=== PATIENT | male | born 1945 | race Caucasian/White ===

== ENCOUNTER 2018-04-11 14:23 | Outpatient (REF) | payer MEDICARE, BC, SELFPAY ==
[2018-04-11 21:21] LABS: Abs Immature Grans 0.01 k/cumm (0.0-0.09); Absolute Basophil Count 0.06 k/cumm (0.0-0.2); Absolute Eosinophil Count 0.27 k/cumm (0.0-0.7); Absolute Lymphocyte Count 2.19 k/cumm (1.2-3.4); Absolute Neutrophil Count 4.94 k/cumm (1.2-6.7); Basophils % 0.7; Eosinophils % 3.3; HCT 36.2 % (40.0-50.0); HGB 10.7 g/dL (13.5-17.5); Immature Grans % 0.1; Lymphocytes % 26.5; Mean Corp. HGB Concentration 29.6 g/dL (32.0-36.0); Mean Corpuscular Hemoglobin 25.2 pg (27.0-33.0); Mean Corpuscular Volume 85.2 fL (80-95); Mean Platelet Volume 11.5 fL (8.0-11.0); Monocytes % 9.7; Neutrophils % 59.7; Platelet Count 295 x1000/uL (130-400); RBC 4.25 m/cumm (4.50-6.00); White Blood Cell Count 8.27 k/cumm (4.4-10.8)
[2018-04-11 21:55] LABS: ALT 29 U/L (12-78); AST 16 U/L (15-37); Albumin 3.9 g/dL (3.4-5.0); Alkaline Phosphatase 63 U/L (46-116); BUN 20 mg/dL (7-18); Bilirubin, Total 0.2 mg/dL (0.2-1.0); CREATININE 1.04 mg/dL (0.70-1.30); Calcium 8.7 mg/dL (8.5-10.1); Chloride 105 mmol/L (98-107); Cholesterol 230 mg/dL (50-200); Ferritin 11 ng/mL (8-388); Glucose 92 mg/dL (70-100); HDL Cholesterol 39 mg/dL (40-60); LDL CHOLESTEROL 160 mg/dL (<100); Potassium 4.5 mmol/L (3.5-5.1); Sodium 139 mmol/L (136-145); Total Protein 7.2 g/dL (6.4-8.2); Triglyceride 265 mg/dL (30-150)
== END 2018-04-11 14:24 ==
LOC: NCHCN 14:23
PROVIDERS: Visit Provider Family Medicine
DX: D64.9 Anemia, unspecified (principal); E78.5 Hyperlipidemia, unspecified
CPT/HCPCS: 80053; 80061; 83721; 82728; 85025; 85045

== ENCOUNTER 2019-01-22 11:41 | Outpatient (REF) | payer MEDICARE, BC, SELFPAY ==
[2019-01-22 22:16] LABS: HGB 14.4 g/dL (13.5-17.5); Mean Corp. HGB Concentration 32.7 g/dL (32.0-36.0); Mean Corpuscular Volume 100.7 fL (80-95); Mean Platelet Volume 11.5 fL (8.0-11.0); Platelet Count 228 x1000/uL (130-400); RBC 4.37 m/cumm (4.50-6.00); RBC Distribution Width 11.9 % (11.8-14.1); White Blood Cell Count 6.07 k/cumm (4.4-10.8)
[2019-01-22 22:48] LABS: ALT 26 U/L (12-78); AST 23 U/L (15-37); Albumin 3.8 g/dL (3.4-5.0); Alkaline Phosphatase 63 U/L (46-116); Anion Gap 9.4 mmol/L (3-11); BUN 17 mg/dL (7-18); Bilirubin, Total 0.6 mg/dL (0.2-1.0); CO2 25.6 mmol/L (21.0-32.0); CREATININE 0.89 mg/dL (0.70-1.30); Calculated LDL 94; Chloride 106 mmol/L (98-107); Cholesterol 152 mg/dL (50-200); Ferritin 9 ng/mL (8-388); Glucose 89 mg/dL (70-100); HDL Cholesterol 45 mg/dL (40-60); Potassium 4.5 mmol/L (3.5-5.1); Sodium 141 mmol/L (136-145); Total Protein 6.8 g/dL (6.4-8.2); Triglyceride 69 mg/dL (30-150)
[2019-01-22 22:54] LABS: Calcium 8.8 mg/dL (8.5-10.1)
[2019-01-23 20:38] LABS: Vitamin B12 743 pg/mL (193-986)
[2019-01-27 09:37] LABS: Folate 22.8 ng/ml
== END 2019-01-22 12:01 ==
LOC: NCHCN 11:41
PROVIDERS: Visit Provider Family Medicine
DX: D64.9 Anemia, unspecified (principal); E78.5 Hyperlipidemia, unspecified; D75.89 Other specified diseases of blood and blood-forming organs; I10 Essential (primary) hypertension; E66.9 Obesity, unspecified
CPT/HCPCS: 80053; 80061; 83721; 85027; 82607; 82728; 82746

== ENCOUNTER 2019-06-02 09:50 | Outpatient (REF) | payer MEDICARE, BC, SELFPAY ==
[2019-06-02 22:12] LABS: HCT 47.1 % (40.0-50.0); HGB 15.5 g/dL (13.5-17.5); Mean Corp. HGB Concentration 32.9 g/dL (32.0-36.0); Mean Corpuscular Hemoglobin 32.9 pg (27.0-33.0); Mean Platelet Volume 11.7 fL (8.0-11.0); Platelet Count 218 x1000/uL (130-400); RBC 4.71 m/cumm (4.50-6.00); RBC Distribution Width 13.1 % (11.8-14.1); White Blood Cell Count 6.09 k/cumm (4.4-10.8)
[2019-06-02 22:37] LABS: Ferritin 23 ng/mL (8-388)
== END 2019-06-02 10:10 ==
LOC: NCHCN 09:50
PROVIDERS: Visit Provider Family Medicine
DX: D64.9 Anemia, unspecified (principal)
CPT/HCPCS: 85027; 82728

== ENCOUNTER 2020-05-25 09:48 | Outpatient (REF) | payer MEDICARE, BC, SELFPAY ==
[2020-05-25 21:13] LABS: Abs Immature Grans 0.01 10^3/uL (0.0-0.06); Absolute Basophil Count 0.06 10^3/uL (0.0-0.2); Absolute Eosinophil Count 0.15 10^3/uL (0.0-0.7); Absolute Lymphocyte Count 1.59 10^3/uL (1.2-3.4); Absolute Monocyte Count 0.53 10^3/uL (0.1-0.8); Absolute Neutrophil Count 3.81 10^3/uL (1.2-6.7); Eosinophils % 2.4; HCT 46.1 % (40.0-50.0); HGB 15.2 g/dL (13.5-17.5); Immature Grans % 0.2; Lymphocytes % 25.9; MCH 32.7 pg (27.0-33.0); MCV 99.1 fL (80-95); MPV 11.5 fL (8.0-11.0); Monocytes % 8.6; Neutrophils % 61.9; Nucleated RBC 0 %; Platelet Count 227 10^3/uL (130-400); RBC 4.65 10^6/uL (4.36-5.78); RDW 12.1 % (11.8-14.1); RDW-SD 44.2 fL; WBC 6.15 10^3/uL (4.4-10.8)
[2020-05-25 21:39] LABS: ALT 28 U/L (16-63); AST 17 U/L (15-37); Albumin 3.9 g/dL (3.4-5.0); Alkaline Phosphatase 58 U/L (46-116); Anion Gap 7.7 mmol/L (3-11); BUN 18 mg/dL (7-18); Bilirubin, Total 0.8 mg/dL (0.2-1.0); CO2 27.3 mmol/L (21.0-32.0); Calculated LDL 98 mg/dL (<100); Chloride 107 mmol/L (98-107); Cholesterol 160 mg/dL (<200); Ferritin 18 ng/mL (26-388); Glucose 91 mg/dL (74-106); HDL Cholesterol 50 mg/dL (40-60); Potassium 4.6 mmol/L (3.5-5.1); Sodium 142 mmol/L (136-145); Total Protein 6.8 g/dL (6.4-8.2); Triglyceride 63 mg/dL (<150)
== END 2020-05-25 10:08 ==
LOC: NCHCN 09:48
PROVIDERS: Visit Provider Family Medicine
DX: D64.9 Anemia, unspecified (principal); E78.5 Hyperlipidemia, unspecified
CPT/HCPCS: 80053; 80061; 82728; 85025

== ENCOUNTER 2021-05-12 08:23 | Outpatient (REF) | payer MEDICARE, BC, SELFPAY ==
[2021-05-12 21:12] LABS: Abs Immature Grans 0.01 10^3/uL (0.0-0.06); Absolute Basophil Count 0.07 10^3/uL (0.0-0.2); Absolute Eosinophil Count 0.21 10^3/uL (0.0-0.7); Absolute Lymphocyte Count 1.74 10^3/uL (1.2-3.4); Absolute Monocyte Count 0.52 10^3/uL (0.1-0.8); Absolute Neutrophil Count 3.54 10^3/uL (1.2-6.7); Basophils % 1.1; Eosinophils % 3.4; HCT 46.7 % (40.0-50.0); HGB 14.9 g/dL (13.5-17.5); Immature Grans % 0.2; Lymphocytes % 28.6; MCH 30.5 pg (27.0-33.0); MCHC 31.9 % (32.0-36.0); MCV 95.7 fL (80-95); Monocytes % 8.5; Neutrophils % 58.2; Nucleated RBC 0 %; Platelet Count 206 10^3/uL (130-400); RBC 4.88 10^6/uL (4.36-5.78); RDW 13.3 % (11.8-14.1); RDW-SD 47.3 fL; WBC 6.09 10^3/uL (4.4-10.8)
[2021-05-12 21:27] LABS: ALT 26 U/L (16-63); AST 16 U/L (15-37); Albumin 3.8 g/dL (3.4-5.0); Alkaline Phosphatase 61 U/L (46-116); Anion Gap 8.6 mmol/L (3-11); BUN 21 mg/dL (7-18); Bilirubin, Total 0.6 mg/dL (0.2-1.0); CO2 27.4 mmol/L (21.0-32.0); Calculated LDL 101 mg/dL (<100); Chloride 107 mmol/L (98-107); Cholesterol 161 mg/dL (<200); Ferritin 25 ng/mL (26-388); Glucose 89 mg/dL (74-106); HDL Cholesterol 45 mg/dL (40-60); Potassium 4.5 mmol/L (3.5-5.1); Sodium 143 mmol/L (136-145); Total Protein 6.7 g/dL (6.4-8.2); Triglyceride 75 mg/dL (<150)
== END 2021-05-12 08:24 | disposition home or self-care (01) ==
LOC: NCHCN 08:23
PROVIDERS: Visit Provider Family Medicine
DX: I10 Essential (primary) hypertension (principal); D64.9 Anemia, unspecified; Z00.00 Encounter for general adult medical examination without abnormal findings
CPT/HCPCS: 80053; 80061; 82728; 85025

== ENCOUNTER 2021-12-15 19:59 | Outpatient (REF) | payer MEDICARE, BC, SELFPAY ==
[2021-12-15 21:31] LABS: HCT 34.1 % (40.0-50.0); HGB 9.8 g/dL (13.5-17.5); MCH 24.7 pg (27.0-33.0); MCHC 28.7 % (32.0-36.0); MCV 86 fL (80-95); MPV 11.3 fL (8.0-11.0); Platelet Count 328 10^3/uL (130-400); RBC 3.96 10^6/uL (4.36-5.78); RDW 14.2 % (11.8-14.1); WBC 6.99 10^3/uL (4.4-10.8)
== END 2021-12-15 20:00 | disposition home or self-care (01) ==
LOC: NCHCN 19:59
PROVIDERS: Visit Provider Family Medicine
DX: Z86.2 Personal history of diseases of the blood and blood-forming organs and certain disorders involving the immune mechanism (principal)
CPT/HCPCS: 85027

== ENCOUNTER 2022-03-30 15:26 | Outpatient (REF) | payer MEDICARE, BC, SELFPAY ==
[2022-03-30 14:38] LABS: ALT 23 U/L (16-63); AST 18 U/L (15-37); Albumin 3.7 g/dL (3.4-5.0); Alkaline Phosphatase 57 U/L (46-116); Anion Gap 10.4 mmol/L (3-11); BUN 18 mg/dL (7-18); Bilirubin, Total 0.6 mg/dL (0.2-1.0); CO2 24.6 mmol/L (21.0-32.0); Calcium 8.8 mg/dL (8.5-10.1); Calculated LDL 139 mg/dL (<100); Chloride 105 mmol/L (98-107); Cholesterol 206 mg/dL (<200); Ferritin 18 ng/mL (26-388); Glucose 95 mg/dL (74-106); HDL Cholesterol 46 mg/dL (40-60); Potassium 4.4 mmol/L (3.5-5.1); Sodium 140 mmol/L (136-145); Total Protein 7.2 g/dL (6.4-8.2); Triglyceride 107 mg/dL (<150)
== END 2022-03-30 15:27 | disposition home or self-care (01) ==
LOC: NCHCN 15:26
PROVIDERS: Visit Provider Family Medicine
DX: I10 Essential (primary) hypertension (principal); E78.5 Hyperlipidemia, unspecified; D75.89 Other specified diseases of blood and blood-forming organs; Z86.2 Personal history of diseases of the blood and blood-forming organs and certain disorders involving the immune mechanism
CPT/HCPCS: 80053; 80061; 85027; 82728

== ENCOUNTER 2022-04-03 15:25 | Outpatient (REF) | payer MEDICARE, BC, SELFPAY ==
[2022-04-03 14:17] LABS: HGB 15.5 g/dL (13.5-17.5); MCH 30.6 pg (27.0-33.0); MCV 93 fL (80-95); Platelet Count 207 10^3/uL (130-400); RBC 5.06 10^6/uL (4.36-5.78); RDW 16.3 % (11.8-14.1); RDW-SD 55.8 fL; WBC 5.83 10^3/uL (4.4-10.8)
== END 2022-04-03 15:26 | disposition home or self-care (01) ==
LOC: NCHCN 15:25
PROVIDERS: Visit Provider Family Medicine
DX: D75.89 Other specified diseases of blood and blood-forming organs (principal); I10 Essential (primary) hypertension; E78.5 Hyperlipidemia, unspecified; Z86.2 Personal history of diseases of the blood and blood-forming organs and certain disorders involving the immune mechanism
CPT/HCPCS: 85027

== ENCOUNTER 2023-05-29 19:04 | Outpatient (REF) | payer MEDICARE, BC, SELFPAY ==
[2023-05-29 15:29] LABS: HCT 49.2 % (40.0-50.0); HGB 16.3 g/dL (13.5-17.5); MCH 33.2 pg (27.0-33.0); MCHC 33.1 % (32.0-36.0); MCV 100 fL (80-95); MPV 11.4 fL (8.0-11.0); Platelet Count 191 10^3/uL (130-400); RBC 4.91 10^6/uL (4.36-5.78); RDW-SD 44.9 fL; WBC 5.68 10^3/uL (4.4-10.8)
[2023-05-29 15:59] LABS: ALT 24 U/L (16-63); AST 21 U/L (15-37); Albumin 3.6 g/dL (3.4-5.0); Alkaline Phosphatase 59 U/L (46-116); Anion Gap 6.8 mmol/L (3-11); BUN 17 mg/dL (7-18); Bilirubin, Total 0.7 mg/dL (0.2-1.0); CO2 26.2 mmol/L (21.0-32.0); CREATININE 1.1 mg/dL (0.70-1.30); Calcium 9.3 mg/dL (8.5-10.1); Calculated LDL 87 mg/dL (<100); Chloride 108 mmol/L (98-107); Cholesterol 153 mg/dL (<200); Estimated GFR 68.71 (mL/min/1.73m2); Ferritin 50 ng/mL (26-388); Glucose 105 mg/dL (74-106); HDL Cholesterol 52 mg/dL (40-60); Potassium 4.7 mmol/L (3.5-5.1); Sodium 141 mmol/L (136-145); Triglyceride 73 mg/dL (<150)
== END 2023-05-29 19:05 | disposition home or self-care (01) ==
LOC: NCHCN 19:04
PROVIDERS: Visit Provider Family Medicine
DX: E78.5 Hyperlipidemia, unspecified (principal); Z86.2 Personal history of diseases of the blood and blood-forming organs and certain disorders involving the immune mechanism; I10 Essential (primary) hypertension
CPT/HCPCS: 80053; 80061; 85027; 82728

== ENCOUNTER 2024-05-28 15:08 | Outpatient (REF) | payer MEDICARE, BC, SELFPAY ==
[2024-05-28 15:16] LABS: HCT 52.1 % (40.0-50.0); MCH 33.5 pg (27.0-33.0); MCHC 32.6 % (32.0-36.0); MCV 103 fL (80-95); MPV 11.3 fL (8.0-11.0); Platelet Count 197 10^3/uL (130-400); RBC 5.08 10^6/uL (4.36-5.78); RDW-SD 45.6 fL; WBC 5.76 10^3/uL (4.4-10.8)
[2024-05-28 15:40] LABS: ALT 25 U/L (16-63); AST 17 U/L (15-37); Albumin 3.8 g/dL (3.4-5.0); Alkaline Phosphatase 63 U/L (46-116); Anion Gap 7.4 mmol/L (3-11); BUN 21 mg/dL (7-18); Bilirubin, Total 0.74 mg/dL (0.2-1.0); CO2 28.6 mmol/L (21.0-32.0); CREATININE 1.1 mg/dL (0.70-1.30); Calcium 9.1 mg/dL (8.5-10.1); Calculated LDL 77 mg/dL (<100); Chloride 110 mmol/L (98-107); Cholesterol 141 mg/dL (<200); Estimated GFR 68.29 (mL/min/1.73m2); Ferritin 29 ng/mL (26-388); Glucose 95 mg/dL (74-106); HDL Cholesterol 50 mg/dL (40-60); Potassium 4.7 mmol/L (3.5-5.1); Sodium 146 mmol/L (136-145); Total Protein 6.8 g/dL (6.4-8.2); Triglyceride 72 mg/dL (<150)
== END 2024-05-28 15:09 | disposition home or self-care (01) ==
LOC: NCHCN 15:08
PROVIDERS: Visit Provider Family Medicine
DX: I10 Essential (primary) hypertension (principal); Z86.2 Personal history of diseases of the blood and blood-forming organs and certain disorders involving the immune mechanism
CPT/HCPCS: 80053; 80061; 85027; 82728

== ENCOUNTER 2025-06-08 15:17 | Outpatient (REF) | payer MEDICARE, BC, SELFPAY ==
[2025-06-08 15:57] LABS: HCT 48.9 % (40.0-50.0); HGB 16.2 g/dL (13.5-17.5); MCH 33.5 pg (27.0-33.0); MCHC 33.1 % (32.0-36.0); MCV 101 fL (80-95); MPV 11.6 fL (8.0-11.0); Platelet Count 189 10^3/uL (130-400); RBC 4.83 10^6/uL (4.36-5.78); RDW 11.9 % (11.8-14.1); RDW-SD 44.8 fL; WBC 6.39 10^3/uL (4.4-10.8)
[2025-06-08 16:42] LABS: ALT 23 U/L (16-63); AST 16 U/L (15-37); Albumin 3.7 g/dL (3.4-5.0); Alkaline Phosphatase 72 U/L (46-116); Anion Gap 7.8 mmol/L (3-11); BUN 19 mg/dL (7-18); Bilirubin, Total 0.8 mg/dL (0.2-1.0); CO2 28.2 mmol/L (21.0-32.0); Calcium 9.0 mg/dL (8.5-10.1); Calculated LDL 88 mg/dL (<100); Chloride 106 mmol/L (98-107); Cholesterol 149 mg/dL (<200); Estimated GFR 76.08 (mL/min/1.73m2); Ferritin 56 ng/mL (26-388); Glucose 90 mg/dL (74-106); HDL Cholesterol 46 mg/dL (>or=40); Potassium 4.8 mmol/L (3.5-5.1); Sodium 142 mmol/L (136-145); Total Protein 6.9 g/dL (6.4-8.2); Triglyceride 75 mg/dL (<150)
== END 2025-06-08 15:18 | disposition home or self-care (01) ==
LOC: NCHCN 15:17
PROVIDERS: Visit Provider Family Medicine
DX: E78.5 Hyperlipidemia, unspecified (principal); D75.9 Disease of blood and blood-forming organs, unspecified; I10 Essential (primary) hypertension
CPT/HCPCS: 80053; 80061; 85027; 82728